=== PATIENT | female | born 1960 | race Caucasian/White ===

== ENCOUNTER 2021-10-13 09:48 | Inpatient (IN) | payer OTHER ==
[2021-10-09 13:14] VITALS: BMI 32.8
[2021-10-13] MEDS ORDERED: TRANEXAMIC ACID 1000 MG/10 ML VIAL IVPUSH ONE (10:50)
[2021-10-13] MEDS ORDERED: CEFAZOLIN 2 GM in DEXTROSE 5%-WATER 100 ML IVPB ONE (10:50)
[2021-10-13] MEDS ORDERED: VANCOMYCIN 1,000 MG VIAL (RESTRICTED TO ID ONLY) ONE ×2 (11:55→14:24)
[2021-10-13] MEDS ORDERED: MIDAZOLAM HCL 2 MG/2 ML SINGLE DOSE VIAL ONE ×2 (12:30→14:01)
[2021-10-13] MEDS ORDERED: ROPIVACAINE HCL/PF 100 MG/20 ML VIAL ONE (12:31)
[2021-10-13] MEDS ORDERED: BUPIVACAINE HCL 50 ML ONE (12:31)
[2021-10-13] MEDS ORDERED: ceFAZolin SODIUM 1 GM VIAL ONE ×2 (14:24→21:31)
[2021-10-13] MEDS ORDERED: DEXAMETHASONE SOD PHOSPHATE 4 MG/1 ML VIAL ONE (14:24)
[2021-10-13] MEDS ORDERED: ONDANSETRON 4 MG/2 ML VIAL ONE (14:24)
[2021-10-13] MEDS ORDERED: TRANEXAMIC ACID 1000 MG/10 ML VIAL ONE ×2 (14:24→16:16)
[2021-10-13] MEDS ORDERED: PROPOFOL 20 ML ONE (14:38)
[2021-10-13] MEDS ORDERED: KETOROLAC TROMETHAMINE 60 MG/2 ML VIAL ONE (14:56)
[2021-10-13] MEDS ORDERED: BUPIVACAINE HCL/PF 0.25% (2.5MG/ML) 10 ML VIAL ONE ×2 (14:57→16:51)
[2021-10-13] MEDS ORDERED: HYDROmorphone HCL/PF 1 MG/ML VIAL ONE ×2 (15:54→15:55)
[2021-10-13] MEDS ORDERED: ONDANSETRON 4 MG/2 ML VIAL IVPUSH PRN (16:27)
[2021-10-13] MEDS ORDERED: oxyCODONE HCL 5 MG TABLET PO PRN (16:27)
[2021-10-13] MEDS ORDERED: MAG HYDROX/AL HYDROX/SIMETH 30 ML UNIT-DOSE CUP PO PRN (16:34)
[2021-10-13] MEDS ORDERED: MAGNESIUM HYDROX 2400MG/30ML ORAL SUSPENSION 30 ML CUP PO PRN (16:34)
[2021-10-13] MEDS ORDERED: LACTATED RINGERS SOLUTION 1,000 ML IV SCH (16:45)
[2021-10-13] MEDS ORDERED: ACETAMINOPHEN 500 MG TABLET (FP) ONE (17:47)
[2021-10-13] MEDS: ACETAMINOPHEN 500 MG TABLET (FP) PO SCH ×2 (17:50→22:02)
[2021-10-13] MEDS ORDERED: oxyCODONE HCL 5 MG TABLET ONE (17:52)
[2021-10-13] MEDS: oxyCODONE HCL 5 MG TABLET PO PRN (21:00)
[2021-10-13] MEDS ORDERED: DEXTROSE 5%-WATER - 100 ML IVPB ONE (21:31)
[2021-10-13] MEDS: SENNOSIDES/DOCUSATE COMBO (SENNA PLUS) TABLET (UD) PO SCH (22:02)
[2021-10-13] MEDS: CEFAZOLIN 3 GM in DEXTROSE 5%-WATER - 100 ML IVPB SCH (22:02)
[2021-10-13] MEDS: GABAPENTIN 300 MG CAPSULE PO SCH (22:02)
[2021-10-14] MEDS ORDERED: DEXTROSE 5%-WATER - 100 ML IVPB ONE ×2 (04:06→12:57)
[2021-10-14] MEDS ORDERED: ceFAZolin SODIUM 1 GM VIAL ONE ×2 (04:06→12:57)
[2021-10-14] MEDS: ACETAMINOPHEN 500 MG TABLET (FP) PO SCH ×4 (04:25→21:46)
[2021-10-14] MEDS: CEFAZOLIN 3 GM in DEXTROSE 5%-WATER - 100 ML IVPB SCH ×2 (06:27→13:09)
[2021-10-14 08:58] LABS: CALCIUM 8.7 mg/dl (8.5-10); CREATININE 0.6 mg/dl (0.55-1.3)
[2021-10-14] MEDS: SENNOSIDES/DOCUSATE COMBO (SENNA PLUS) TABLET (UD) PO SCH ×2 (09:21→21:46)
[2021-10-14] MEDS: ONDANSETRON 4 MG/2 ML VIAL IVPUSH PRN ×2 (09:21→17:36)
[2021-10-14] MEDS: MULTIVITAMINS (DAILY MVI) TABLET (FP) PO SCH (09:21)
[2021-10-14] MEDS: PANTOPRAZOLE 40 MG TABLET PO SCH (09:21)
[2021-10-14] MEDS: GABAPENTIN 300 MG CAPSULE PO SCH ×2 (09:21→21:47)
[2021-10-14] MEDS: ASPIRIN 325 MG TABLET PO SCH ×2 (09:21→21:46)
[2021-10-14] MEDS ORDERED: SODIUM CHLORIDE 500 ML IV STA (09:31)
[2021-10-14 10:02] LABS: HEMATOCRIT 30.1 % (32.4-45.2); HEMOGLOBIN 10.3 GM/dL (10.7-15.3); MCH 30.5 pg (25.7-33.7); MCHC 34.3 g/dl (32.0-36.0); MEAN PLT VOLUME 9.1 fl (7.5-11.1); PLATELET COUNT 246 10^3/uL (134-434); RBC 3.38 M/mm3 (3.60-5.2); RDW 12.1 % (11.6-15.6); WHITE BLOOD COUNT 9.7 K/mm3 (4.0-10.0)
[2021-10-14] MEDS: metoPROLOL SUCCINATE 25 MG TAB.SR.24H (FP) PO SCH (11:10)
[2021-10-14] MEDS: LEVOTHYROXINE NA 125 MCG TABLET (FP) PO SCH (11:10)
[2021-10-14] MEDS: metFORMIN HCL 500 MG TABLET (FP) PO SCH ×2 (11:10→16:05)
[2021-10-14] MEDS: CYANOCOBALAMIN 1,000 MCG TABLET (FP) PO SCH (11:10)
[2021-10-14] MEDS: oxyCODONE HCL 5 MG TABLET PO PRN ×2 (13:02→19:24)
[2021-10-14] MEDS: INSULIN SLIDING SCALE (NOVOLOG) 1 VIAL SQ SCH ×2 (16:06→21:58)
[2021-10-14] MEDS ORDERED: ATORVASTATIN CA 40 MG TABLET (FP) PO SCH (22:00)
[2021-10-15] MEDS: ACETAMINOPHEN 500 MG TABLET (FP) PO SCH ×3 (04:51→16:08)
[2021-10-15] MEDS: metFORMIN HCL 500 MG TABLET (FP) PO SCH ×2 (06:44→16:08)
[2021-10-15] MEDS: LEVOTHYROXINE NA 125 MCG TABLET (FP) PO SCH (06:44)
[2021-10-15] MEDS: INSULIN SLIDING SCALE (NOVOLOG) 1 VIAL SQ SCH ×3 (06:47→16:00)
[2021-10-15] MEDS: oxyCODONE HCL 5 MG TABLET PO PRN ×3 (08:22→14:05)
[2021-10-15 09:01] LABS: HEMATOCRIT 29.6 % (32.4-45.2); HEMOGLOBIN 10.3 G/dL (10.7-15.3); MCH 31.5 pg (25.7-33.7); MCHC 34.7 g/dl (32.0-36.0); MEAN CELL VOLUME 90.8 fl (80-96); MEAN PLT VOLUME 8.2 fl (7.5-11.1); PLATELET COUNT 229.6 10^3/uL (134-434); RBC 3.26 10^6/uL (3.60-5.2); RDW 12.8 % (11.6-15.6); WHITE BLOOD COUNT 7.9 10^3/uL (4.0-10.8)
[2021-10-15] MEDS: PANTOPRAZOLE 40 MG TABLET PO SCH (10:18)
[2021-10-15] MEDS: MULTIVITAMINS (DAILY MVI) TABLET (FP) PO SCH (10:18)
[2021-10-15] MEDS: CYANOCOBALAMIN 1,000 MCG TABLET (FP) PO SCH (10:18)
[2021-10-15] MEDS: metoPROLOL SUCCINATE 25 MG TAB.SR.24H (FP) PO SCH (10:18)
[2021-10-15] MEDS: GABAPENTIN 300 MG CAPSULE PO SCH (10:19)
[2021-10-15] MEDS: SENNOSIDES/DOCUSATE COMBO (SENNA PLUS) TABLET (UD) PO SCH (10:19)
[2021-10-15] MEDS: ASPIRIN 325 MG TABLET PO SCH (10:19)
[2021-10-15] MEDS ORDERED: KETOROLAC TROMETHAMINE 30 MG/1 ML VIAL IVPUSH ONE (11:45)
[2021-10-15] MEDS: ONDANSETRON 4 MG/2 ML VIAL IVPUSH PRN (13:48)
[2021-10-15 14:06] VITALS: BP 112/64; PULSE 86; TEMP 99.2
== END 2021-10-15 16:20 | disposition home or self-care (01) | DRG 301 ==
LOC: FM/S 09:48
PROVIDERS: ADMIT Orthopaedic Surgery Sports Medicine; ATTEND Nurse Practitioner Acute Care
PROC: 8E0Y0CZ Robotic Assisted Procedure of Lower Extremity, Open Approach (ICD-10-PCS; 2021-10-13)
PROC: 0SR90JZ Replacement of Right Hip Joint with Synthetic Substitute, Open Approach (ICD-10-PCS; principal; 2021-10-13 14:51)
DX: M16.11 Unilateral primary osteoarthritis, right hip (principal); I10 Essential (primary) hypertension; E78.5 Hyperlipidemia, unspecified; E03.9 Hypothyroidism, unspecified; E11.9 Type 2 diabetes mellitus without complications; Z79.84 Long term (current) use of oral hypoglycemic drugs
CPT/HCPCS: 36415; 73502-TC-RT-FY; 80048; 82962; 85027; 88305-TC; 88311-TC; 94760; 97010-GP; 97116-GP; 97162-GP

== ENCOUNTER 2024-01-24 17:50 | Emergency (ER) | payer OTHER ==
[2024-01-24 18:04] VITALS: BP 115/65; PULSE 78; RESP 15; TEMP 98.1; BMI 33.3
[2024-01-24] MEDS ORDERED: IBUPROFEN 600 MG TABLET (FP) PO ONE (19:17)
[2024-01-24] MEDS: IBUPROFEN 600 MG TABLET (FP) PO ONE (19:18)
== END 2024-01-24 19:55 | disposition home or self-care (01) ==
LOC: FER 17:50
DX: S60.041A Contusion of right ring finger without damage to nail, initial encounter (principal); S66.901A Unspecified injury of unspecified muscle, fascia and tendon at wrist and hand level, right hand, initial encounter; W23.1XXA Caught, crushed, jammed, or pinched between stationary objects, initial encounter
CPT/HCPCS: 73140-TC-RT-FY; 99283-25